=== PATIENT | female | born 1985 | race Caucasian/White ===

== ENCOUNTER 2020-09-13 05:42 | Inpatient (IN) ==
[2020-09-13] MEDS ORDERED: ceFAZolin 2,000 MG in PREMIX 1 EACH IV ONE (05:55)
[2020-09-13] MEDS ORDERED: CITRIC ACID/SODIUM CITRATE 30 ML UDCUP PO ONE (05:55)
[2020-09-13] MEDS ORDERED: LACTATED RINGERS 1,000 ML IV SCH ×2 (06:00→09:00)
[2020-09-13] MEDS ORDERED: FAMOTIDINE 20 MG/2 ML VIAL IV ONE (06:18)
[2020-09-13 06:37] LABS: Basophils # 0.1 10*3/uL (0.0-0.2); Basophils % 0.5 % (0.0-0.8); Eosinophils # 0.2 10*3/uL (0.0-0.87); Eosinophils % 1.4 % (0.00-10.9); Hematocrit 36.8 VOL% (35.7-47.0); Hemoglobin 12.9 GM/DL (12.0-16.0); Immature Granulocytes % 0.8 %; Lymphocytes # 1.8 10*3/uL (1.4-4.0); Lymphocytes % 13.6 % (21.3-54.2); Mean Corpuscular HGB Conc 35.1 GM/DL (32-36); Mean Corpuscular Volume 90.9 FL (87-102); Mean Platelet Volume 11.2 FL (9.6-12.0); Monocytes % 5.2 % (1.7-12.7); Neutrophils % 78.5 % (38.7-73.9); Platelet Count 258 T/CUMM (130-400); Red Blood Count 4.05 MC/CUMM (3.8-5.5); White Blood Count 13.2 T/CUMM (4-12)
[2020-09-13 06:43] LABS: Alanine Aminotransferase 24 U/L (13-56); Albumin 2.6 G/DL (3.4-5.0); Alkaline Phosphatase 160 U/L (45-117); Aspartate Amino Transferase 16 U/L (0-37); Bilirubin,Total < 0.39 MG/DL (0.2-1.0); Blood Urea Nitrogen 5 MG/DL (7-18); Estimated Glom Filtration Rate 153 ML/MIN; Glucose 82 MG/DL (74-106); Osmolality,Calculated 272.5 MOS/KG (273-304); Total Protein 6.9 G/DL (6.4-8.3)
[2020-09-13] MEDS ORDERED: BUPIVACAINE MPF 0.25% 30 ML VIAL ONE (06:44)
[2020-09-13] MEDS ORDERED: BUPIVACAINE SPINAL 0.75% 2 ML AMP SPINAL ONE (06:44)
[2020-09-13] MEDS ORDERED: MORPHINE 10 MG/10 ML VIAL ONE (06:44)
[2020-09-13] MEDS ORDERED: ONDANSETRON 4 MG/2 ML VIAL ONE (06:44)
[2020-09-13] MEDS ORDERED: LACTATED RINGERS 1,000 ML IV ONE (07:00)
[2020-09-13] MEDS ORDERED: TRANEXAMIC ACID 1,000 MG/10 ML VIAL ONE (07:06)
[2020-09-13] MEDS ORDERED: miSOPROStoL 200 MCG TABLET ONE (07:06)
[2020-09-13] MEDS ORDERED: OXYTOCIN/LR 20 UNIT/1,000 ML BAG IV ONE ×2 (07:07→08:41)
[2020-09-13] MEDS ORDERED: METHYLERGONOVINE 0.2 MG/1 ML AMP ONE (07:07)
[2020-09-13] MEDS ORDERED: CARBOPROST TROMETHAMINE 250 MCG/ML AMP IM ONE (07:07)
[2020-09-13] MEDS ORDERED: METHYLERGONOVINE 0.2 MG/1 ML AMP IM ONE (08:00)
[2020-09-13] MEDS ORDERED: fentaNYL 100 MCG/2 ML VIAL ONE (08:05)
[2020-09-13 08:29] LABS: Cord Arterial Blood HCO3 24.2 MMOL/L
[2020-09-13] MEDS ORDERED: propofoL 200 MG/20 ML VIAL IV ONE (08:30)
[2020-09-13 08:32] LABS: Cord Venous Blood HCO3 23.9 MMOL/L; Cord Venous Blood PCO2 39.1 MMHG; Cord Venous Blood PO2 32.5
[2020-09-13] MEDS ORDERED: MAGNESIUM HYDROXIDE SUSP 30 ML UDCUP PO PRN (08:41)
[2020-09-13] MEDS ORDERED: RHO(D) IMMUNE GLOBULIN 300 MCG SYRINGE IM ONE (08:41)
[2020-09-13] MEDS ORDERED: ACETAMINOPHEN 325 MG TABLET PO PRN (08:41)
[2020-09-13] MEDS ORDERED: ONDANSETRON 4 MG/2 ML VIAL IV PRN (08:41)
[2020-09-13] MEDS ORDERED: SIMETHICONE CHEW 80 MG TABLET PO PRN (08:41)
[2020-09-13 10:05] LABS: Bacteria,Urine Occasional /HPF (Few); Bilirubin,Urine Negative (Negative); Blood, Urine Small mg/dL (Negative); Glucose,Urine (UA) Negative (Negative); Ketones,Urine Negative (Negative); Mucus,Urine Occasional /LPF (Occasional); Nitrite,Urine Negative (Negative); Protein,Urine Negative; RBC,Urine <1 /HPF (0-4); Urine Appearance CLEAR (Clear); Urine Color Yellow (Yellow); Urine Specific Gravity 1.011 (1.001-1.035); Urine Urobilinogen < 2.0 EU/DL (0.2-1.0); WBC,Urine <1 /HPF (0-6)
[2020-09-13] MEDS ORDERED: PHENYLEPHRINE 1 MG/10 ML SYRINGE IV ONE (10:39)
[2020-09-13] MEDS ORDERED: SODIUM CHLORIDE 0.9% 100 ML IV ONE (16:37)
[2020-09-13] MEDS: ceFAZolin 1,000 MG in SYRINGE 1 EACH IV SCH ×2 (16:42→23:49)
[2020-09-13 16:45] LABS: Basophils # 0.1 10*3/uL (0.0-0.2); Basophils % 0.3 % (0.0-0.8); Eosinophils # 0.1 10*3/uL (0.0-0.87); Eosinophils % 0.8 % (0.00-10.9); Hematocrit 33.3 VOL% (35.7-47.0); Hemoglobin 11.7 GM/DL (12.0-16.0); Immature Granulocytes % 0.6 %; Lymphocytes # 1.4 10*3/uL (1.4-4.0); Lymphocytes % 7.9 % (21.3-54.2); Mean Corpuscular HGB Conc 35.1 GM/DL (32-36); Mean Platelet Volume 11.2 FL (9.6-12.0); Monocytes % 4.2 % (1.7-12.7); Neutrophils % 86.2 % (38.7-73.9); Platelet Count 214 T/CUMM (130-400); Red Cell Distribution Width 12.8 % (9.3-17.3)
[2020-09-13] MEDS: KETOROLAC 30 MG/1 ML VIAL IV PRN (20:00)
[2020-09-13] MEDS: DOCUSATE SODIUM 100 MG CAPSULE PO SCH (20:34)
[2020-09-14] MEDS: KETOROLAC 30 MG/1 ML VIAL IV PRN (01:24)
[2020-09-14] MEDS ORDERED: INFLUENZA VIRUS VACCINE 0.5 ML SYRINGE IM ONE (06:02)
[2020-09-14 06:34] LABS: Basophils % 0.3 % (0.0-0.8); Eosinophils # 0.1 10*3/uL (0.0-0.87); Hematocrit 30.9 VOL% (35.7-47.0); Immature Granulocytes % 0.6 %; Immature Granulocytes Absolute 0.09 #; Lymphocytes # 1.3 10*3/uL (1.4-4.0); Lymphocytes % 8.6 % (21.3-54.2); Mean Corpuscular HGB Conc 35.6 GM/DL (32-36); Mean Corpuscular Volume 90.9 FL (87-102); Mean Platelet Volume 11.1 FL (9.6-12.0); Monocytes % 4.5 % (1.7-12.7); Platelet Count 201 T/CUMM (130-400); Red Cell Distribution Width 13.1 % (9.3-17.3); White Blood Count 14.7 T/CUMM (4-12)
[2020-09-14] MEDS: DOCUSATE SODIUM 100 MG CAPSULE PO SCH ×2 (08:52→20:10)
[2020-09-14] MEDS: FERROUS SULFATE 325 MG TABLET PO SCH (08:52)
[2020-09-14] MEDS: MULTIVITAMIN (PRENATAL) TABLET PO SCH (08:54)
[2020-09-14] MEDS: oxyCODONE/ACETAMINOPHEN 5-325 MG TABLET PO PRN ×2 (08:54→14:11)
[2020-09-14] MEDS: IBUPROFEN 800 MG TABLET PO PRN ×3 (08:54→23:06)
[2020-09-15] MEDS: oxyCODONE/ACETAMINOPHEN 5-325 MG TABLET PO PRN (01:32)
[2020-09-15] MEDS: DOCUSATE SODIUM 100 MG CAPSULE PO SCH (09:09)
[2020-09-15] MEDS: FERROUS SULFATE 325 MG TABLET PO SCH (09:10)
[2020-09-15] MEDS: MULTIVITAMIN (PRENATAL) TABLET PO SCH (09:10)
[2020-09-15] MEDS: IBUPROFEN 800 MG TABLET PO PRN (09:10)
[2020-09-15 12:22] VITALS: BP 102/65
== END 2020-09-15 11:45 | disposition home or self-care (01) | DRG 540 ==
LOC: N.LD 05:42 → N.OB 11:50
PROVIDERS: ADMIT Obstetrics & Gynecology; ATTEND Obstetrics & Gynecology
PROC: LDCSECT (ICD-10-PCS; 2020-09-13 07:00)

== ENCOUNTER 2021-05-26 08:37 | Inpatient (IN) ==
[2021-05-26 09:33] LABS: Bacteria,Urine Few /HPF (Few); Bilirubin,Urine Negative (Negative); Blood, Urine Negative (Negative); Glucose,Urine (UA) Negative (Negative); Ketones,Urine Negative (Negative); Mucus,Urine Few /LPF (Occasional); Nitrite,Urine Negative (Negative); Protein,Urine 30 MG/DL; RBC,Urine <1 /HPF (0-4); Squamous Epithelial Cell,Urine Occasional /HPF (0-10); Urine Appearance Slightly Hazy (Clear); Urine Color Yellow (Yellow); Urine Urobilinogen < 2.0 EU/DL (0.2-1.0)
[2021-05-26] MEDS ORDERED: LACTATED RINGERS 1,000 ML IV SCH ×2 (10:00→14:30)
[2021-05-26 10:15] LABS: Basophils % 0.2 % (0.0-0.8); Hematocrit 32.3 VOL% (35.7-47.0); Immature Granulocytes % 0.9 %; Lymphocytes % 4.5 % (21.3-54.2); Mean Corpuscular HGB Conc 34.1 GM/DL (32-36); Mean Platelet Volume 11.2 FL (9.6-12.0); Neutrophils % 92.4 % (38.7-73.9); Platelet Count 240 T/CUMM (130-400); Red Blood Count 3.51 MC/CUMM (3.8-5.5); Red Cell Distribution Width 14.5 % (9.3-17.3); White Blood Count 22.4 T/CUMM (4-12)
[2021-05-26 10:37] LABS: Band Neutrophils 3 % (0-10); Lymphocytes 5 % (20-55); Platelet Estimate Normal; Segmented Neutrophils 89 % (50-85); Total Cells Counted 100
[2021-05-26 10:38] LABS: Macrocytosis Slight
[2021-05-26 10:44] LABS: Barbiturates Screen,Urine Negative (Negative); Benzodiazepines Screen,Urine Negative (Negative); Cannabinoid Screen,Urine Negative (Negative); Opiate Screen,Urine Negative (Negative); Phencyclidine Screen,Urine Negative (Negative)
[2021-05-26 10:45] LABS: Alanine Aminotransferase 51 U/L (13-56); Albumin 2.6 G/DL (3.4-5.0); Alkaline Phosphatase 91 U/L (45-117); Aspartate Amino Transferase 19 U/L (0-37); Bilirubin,Total < 0.39 MG/DL (0.20-1.00); Blood Urea Nitrogen 6 MG/DL (7-18); Calcium 8.5 MG/DL (8.5-10.1); Carbon Dioxide 21 MMOL/L (21-32); Estimated Glom Filtration Rate 157 ML/MIN; Glucose 102 MG/DL (74-106); Osmolality,Calculated 272.7 MOS/KG (273-304); Potassium 4.1 MMOL/L (3.5-5.1); Sodium 138 MMOL/L (136-145); Total Protein 6.5 G/DL (6.4-8.2)
[2021-05-26] MEDS ORDERED: ONDANSETRON 4 MG/2 ML VIAL IV PRN ×3 (11:16→14:29)
[2021-05-26] MEDS ORDERED: ONDANSETRON 4 MG/2 ML VIAL ONE (11:30)
[2021-05-26] MEDS ORDERED: LIDOCAINE 2% 5 ML VIAL ONE (11:30)
[2021-05-26] MEDS ORDERED: SUCCINYLCHOLINE 200 MG/10 ML VIAL ONE (11:30)
[2021-05-26] MEDS ORDERED: fentaNYL 100 MCG/2 ML VIAL ONE ×2 (11:30→13:03)
[2021-05-26] MEDS ORDERED: propofoL 200 MG/20 ML VIAL IV ONE ×2 (11:30→14:51)
[2021-05-26] MEDS ORDERED: ROCURONIUM 50 MG/5 ML VIAL IV ONE (11:30)
[2021-05-26] MEDS ORDERED: SEVOFLURANE 1 UNIT/15 MINUTE INH ONE ×8 (11:30→14:51)
[2021-05-26] MEDS ORDERED: LIDOCAINE 1%/EPI INJ 20 ML VIAL ONE (11:33)
[2021-05-26] MEDS ORDERED: BUPIVACAINE MPF 0.25% 30 ML VIAL ONE (11:33)
[2021-05-26] MEDS ORDERED: TISSUE ADHESIVE 1 EACH APPLICATOR TOP ONE (11:33)
[2021-05-26] MEDS ORDERED: PIPERACILLIN/TAZOBACTAM 3,375 MG VIAL IV ONE (11:57)
[2021-05-26] MEDS: PIPERACILLIN/TAZOBACTAM 3,375 MG in SODIUM CHLORIDE 0.9% 100 ML IV SCH ×2 (12:05→20:01)
[2021-05-26] MEDS ORDERED: miSOPROStoL 200 MCG TABLET ONE (12:31)
[2021-05-26] MEDS ORDERED: METHYLERGONOVINE 0.2 MG/1 ML AMP ONE (12:31)
[2021-05-26] MEDS ORDERED: TRANEXAMIC ACID 1,000 MG/10 ML VIAL ONE (12:31)
[2021-05-26] MEDS ORDERED: CARBOPROST TROMETHAMINE 250 MCG/ML AMP IM ONE (12:31)
[2021-05-26] MEDS ORDERED: OXYTOCIN/LR 20 UNIT/1,000 ML BAG IV ONE (12:31)
[2021-05-26] MEDS ORDERED: SODIUM CHLORIDE 0.9% 1,000 ML IV PRN (12:33)
[2021-05-26 12:50] LABS: Basophils % 0.2 % (0.0-0.8); Eosinophils % 0.2 % (0.00-10.9); Hematocrit 27.8 VOL% (35.7-47.0); Hemoglobin 9.4 GM/DL (12.0-16.0); Immature Granulocytes % 1.1 %; Immature Granulocytes Absolute 0.18 #; Lymphocytes # 1.2 10*3/uL (1.4-4.0); Mean Corpuscular HGB Conc 33.8 GM/DL (32-36); Mean Corpuscular Volume 91.7 FL (87-102); Mean Platelet Volume 11.4 FL (9.6-12.0); Monocytes % 3.1 % (1.7-12.7); Neutrophils % 88.4 % (38.7-73.9); Platelet Count 231 T/CUMM (130-400); Red Blood Count 3.03 MC/CUMM (3.8-5.5); Red Cell Distribution Width 14.4 % (9.3-17.3)
[2021-05-26 13:07] LABS: INR 0.9; PT Patient Result 10.3 SECS (10.5-12.0); Partial Thromboplastin Time 21.2 SECS (23.9-33.8)
[2021-05-26 13:09] LABS: Cord Arterial Blood HCO3 24.3 MMOL/L
[2021-05-26 13:12] LABS: Cord Venous Blood HCO3 23.5 MMOL/L; Cord Venous Blood PCO2 49.8 MMHG
[2021-05-26] MEDS ORDERED: ROPIVACAINE 0.5% 30 ML VIAL ONE (13:36)
[2021-05-26] MEDS ORDERED: DEXAMETHASONE 4 MG/1 ML VIAL ONE (13:36)
[2021-05-26] MEDS ORDERED: SUGAMMADEX 200 MG/2 ML VIAL IV ONE (13:41)
[2021-05-26 13:42] LABS: Hematocrit 34.4 VOL% (35.7-47.0); Platelet Count 167 T/CUMM (130-400)
[2021-05-26 13:43] LABS: Hemoglobin 11.4 GM/DL (12.0-16.0)
[2021-05-26 13:54] LABS: PT Patient Result 10.7 SECS (10.5-12.0); Partial Thromboplastin Time 24.3 SECS (23.9-33.8)
[2021-05-26] MEDS ORDERED: HYDROmorphone 2 MG/1 ML VIAL ONE (13:55)
[2021-05-26] MEDS ORDERED: MEPERIDINE 25 MG/1 ML VIAL IV PRN (13:57)
[2021-05-26] MEDS ORDERED: HYDROmorphone 2 MG/1 ML VIAL IV PRN (13:57)
[2021-05-26] MEDS ORDERED: ACETAMINOPHEN 325 MG TABLET PO PRN (14:29)
[2021-05-26] MEDS ORDERED: BISACODYL 10 MG SUPP RECTAL PRN (14:29)
[2021-05-26] MEDS ORDERED: MAGNESIUM HYDROXIDE SUSP 30 ML UDCUP PO PRN (14:29)
[2021-05-26] MEDS ORDERED: BENZOCAINE/MENTHOL LOZENGE 18/BOX PO PRN (14:29)
[2021-05-26] MEDS ORDERED: oxyCODONE/ACETAMINOPHEN 5-325 MG TABLET PO PRN (14:32)
[2021-05-26] MEDS ORDERED: SODIUM CHLORIDE 0.9% 1,000 ML IV ONE (14:51)
[2021-05-26] MEDS ORDERED: CALCIUM CHLORIDE 1,000 MG/10 ML VIAL IV ONE (14:51)
[2021-05-26] MEDS ORDERED: LACTATED RINGERS 1,000 ML IV ONE (14:51)
[2021-05-26 16:40] LABS: Basophils % 0.1 % (0.0-0.8); Hematocrit 32.4 VOL% (35.7-47.0); Hemoglobin 10.7 GM/DL (12.0-16.0); Immature Granulocytes % 1.2 %; Immature Granulocytes Absolute 0.26 #; Lymphocytes # 0.7 10*3/uL (1.4-4.0); Mean Platelet Volume 11.5 FL (9.6-12.0); Monocytes % 1.2 % (1.7-12.7); Neutrophils % 94.5 % (38.7-73.9); Platelet Count 151 T/CUMM (130-400); Red Cell Distribution Width 14.9 % (9.3-17.3); White Blood Count 22.3 T/CUMM (4-12)
[2021-05-26 17:04] LABS: Lymphocytes 7 % (20-55); Segmented Neutrophils 88 % (50-85); Total Cells Counted 100
[2021-05-26 17:05] LABS: Anisocytosis 1+; Platelet Estimate Adequate
[2021-05-26 17:12] LABS: Rubella Antibody IgG Result Reactive (NonReactive)
[2021-05-26] MEDS: KETOROLAC 30 MG/1 ML VIAL IV SCH (18:47)
[2021-05-26] MEDS: METOCLOPRAMIDE 10 MG/2 ML VIAL IV SCH (19:54)
[2021-05-26] MEDS ORDERED: MEPERIDINE 50 MG/1 ML VIAL IV PRN (20:30)
[2021-05-27] MEDS: KETOROLAC 30 MG/1 ML VIAL IV SCH ×3 (00:35→11:24)
[2021-05-27] MEDS: METOCLOPRAMIDE 10 MG/2 ML VIAL IV SCH ×3 (03:35→21:07)
[2021-05-27] MEDS: PIPERACILLIN/TAZOBACTAM 3,375 MG in SODIUM CHLORIDE 0.9% 100 ML IV SCH ×3 (04:25→21:11)
[2021-05-27 06:27] LABS: Basophils % 0.1 % (0.0-0.8); Eosinophils % 0.3 % (0.00-10.9); Hematocrit 24.8 VOL% (35.7-47.0); Hemoglobin 8.8 GM/DL (12.0-16.0); Immature Granulocytes % 0.6 %; Immature Granulocytes Absolute 0.09 #; Lymphocytes # 1.8 10*3/uL (1.4-4.0); Lymphocytes % 11.5 % (21.3-54.2); Mean Corpuscular HGB Conc 35.5 GM/DL (32-36); Mean Corpuscular Volume 87.3 FL (87-102); Mean Platelet Volume 11.3 FL (9.6-12.0); Monocytes % 6.5 % (1.7-12.7); Platelet Count 150 T/CUMM (130-400); Red Blood Count 2.84 MC/CUMM (3.8-5.5); Red Cell Distribution Width 15.6 % (9.3-17.3); White Blood Count 15.2 T/CUMM (4-12)
[2021-05-27] MEDS: FERROUS SULFATE 325 MG TABLET PO SCH ×3 (09:50→21:17)
[2021-05-27] MEDS: DOCUSATE SODIUM 100 MG CAPSULE PO PRN ×2 (09:50→21:08)
[2021-05-27] MEDS: IBUPROFEN 800 MG TABLET PO PRN (09:50)
[2021-05-27] MEDS: MULTIVITAMIN (PRENATAL) TABLET PO SCH (09:52)
[2021-05-27] MEDS: SIMETHICONE CHEW 80 MG TABLET PO PRN ×2 (09:52→16:45)
[2021-05-27 11:29] LABS: Basophils % 0.2 % (0.0-0.8); Eosinophils # 0.1 10*3/uL (0.0-0.87); Eosinophils % 0.6 % (0.00-10.9); Hematocrit 26.1 VOL% (35.7-47.0); Hemoglobin 8.6 GM/DL (12.0-16.0); Immature Granulocytes Absolute 0.12 #; Lymphocytes # 1.6 10*3/uL (1.4-4.0); Lymphocytes % 13.1 % (21.3-54.2); Mean Corpuscular Volume 90.9 FL (87-102); Mean Platelet Volume 10.7 FL (9.6-12.0); Monocytes % 6.3 % (1.7-12.7); Neutrophils % 78.8 % (38.7-73.9); Platelet Count 151 T/CUMM (130-400); Red Blood Count 2.87 MC/CUMM (3.8-5.5); Red Cell Distribution Width 15.9 % (9.3-17.3); White Blood Count 12.3 T/CUMM (4-12)
[2021-05-27] MEDS: oxyCODONE/ACETAMINOPHEN 5-325 MG TABLET PO PRN ×2 (15:09→21:08)
[2021-05-28] MEDS: PIPERACILLIN/TAZOBACTAM 3,375 MG in SODIUM CHLORIDE 0.9% 100 ML IV SCH (03:21)
[2021-05-28] MEDS: IBUPROFEN 800 MG TABLET PO PRN (03:25)
[2021-05-28] MEDS: oxyCODONE/ACETAMINOPHEN 5-325 MG TABLET PO PRN ×2 (06:16→12:58)
[2021-05-28] MEDS: METOCLOPRAMIDE 10 MG TABLET PO SCH ×2 (06:17→12:59)
[2021-05-28 06:21] LABS: Hematocrit 24.2 VOL% (35.7-47.0)
[2021-05-28] MEDS: MULTIVITAMIN (PRENATAL) TABLET PO SCH (09:28)
[2021-05-28] MEDS: FERROUS SULFATE 325 MG TABLET PO SCH (09:28)
[2021-05-28] MEDS ORDERED: MEASLES/MUMPS/RUBELLA VACCINE 0.5 ML VIAL SUBCUT ONE (14:04)
[2021-05-28 15:22] VITALS: BP 98/60
== END 2021-05-28 14:35 | disposition home or self-care (01) | DRG 539 ==
LOC: N.LDOUT 08:37 → N.LD 08:38 → N.OB 15:15
PROVIDERS: ADMIT Obstetrics & Gynecology; ATTEND Obstetrics & Gynecology